=== PATIENT | female | born 1950 | race Two or more races ===

== ENCOUNTER 2017-08-23 20:22 | Inpatient (IN) | payer MEDICARE ==
[~2017-08-23] VITALS: Ht 170.2 cm; Wt 65.2 kg
[2017-08-23] MEDS ORDERED: ONDANSETRON 2MG/ML, 2ML IVPush ONE (21:00)
[2017-08-23] MEDS ORDERED: IBUPROFEN 200 MG TABLET PO ONE (21:00)
[2017-08-23] MEDS ORDERED: HYDROmorphone 1 MG/ML, 1ML IVPush PRN (21:00)
[2017-08-23] MEDS ORDERED: SODIUM CHLORIDE FLUSH 10ML SYR IVF ONE (21:00)
[2017-08-23] MEDS ORDERED: MORPHINE SULFATE 4 MG/ML, 1ML IVPush PRN (21:30)
[2017-08-23] MEDS ORDERED: PLEASE ENTER ALLERGIES MC SCH (21:30)
[2017-08-23] MEDS: PLEASE ENTER ALLERGIES MC SCH ×3 (21:36→23:36)
[2017-08-23 22:14] LABS: MEAN CORPUSCULAR HEMOGLOBIN 37.8 pg (27.0-34.8); MEAN CORPUSCULAR HGB CONC 34.2 g/dL (32.4-35.8); MEAN CORPUSCULAR VOLUME 110.6 fL (80-100); MEAN PLATELET VOLUME 8.3 fL (7.4-10.4); PLATELET COUNT 199 x10^3/uL (130-400); RED BLOOD COUNT 3.27 x10^6/uL (3.82-5.3); RED CELL DISTRIBUTION WIDTH 13.8 % (9.6-15.2)
[2017-08-23] MEDS ORDERED: MORPHINE SULFATE 4 MG/ML, 1ML ONE ×2 (22:22→22:58)
[2017-08-23 22:23] LABS: INTERNATIONAL NORMALIZED RATIO 1.05 (0.93-1.1); PROTHROMBIN TIME 10.8 Seconds (9.6-11.5)
[2017-08-23 22:25] LABS: ALBUMIN 3.1 g/dL (3.4-5.0); ANION GAP 13 mmol/L (5-15); CALCIUM 8.2 mg/dL (8.5-10.1); CHLORIDE 103 mmol/L (98-107); CREATININE 0.61 mg/dL (0.55-1.02)
[2017-08-23 22:37] LABS: BASOPHILS # (AUTO) 0.03 x10^3/uL (0-0.1); BASOPHILS % (AUTO) 0 % (0-1); EOSINOPHILS % (AUTO) 0 % (1-7); LYMPHOCYTES # (AUTO) 0.73 x10^3/uL (1-3.4); LYMPHOCYTES % (AUTO) 9 % (22-44); MD MORPH REVIEW ONLY; MONOCYTES # (AUTO) 0.31 x10^3/uL (0.2-0.8); MONOCYTES % (AUTO) 4 % (2-9); NEUTROPHILS # (AUTO) 7.41 x10^3/uL (1.8-6.8); NEUTROPHILS % (AUTO) 87 % (42-75)
[2017-08-23 22:38] LABS: <PLATELET ESTIMATE> ADEQUATE
[2017-08-23 22:39] LABS: LARGE PLATELETS 1+
[2017-08-23] MEDS: SODIUM CHLORIDE 0.9% 1,000 ML IV SCH (23:33)
[2017-08-24] MEDS ORDERED: THIAMINE 100 MG, MVI ADULT 10 ML, FOLIC ACID 1 MG in D5%-0.9% NACL 1,000 ML IV SCH
[2017-08-24] MEDS ORDERED: HEPARIN 5,000 UNITS/ML, 1ML SQ ONE
[2017-08-24] MEDS ORDERED: POLYETHYLENE GLYCOL 17 GM PACKET PO PRN
[2017-08-24] MEDS: PLEASE ENTER ALLERGIES MC SCH ×2 (00:36→01:36)
[2017-08-24 00:45] VITALS: BP 118/77
[2017-08-24] MEDS: morphine SULFATE 10 MG/ML, 1ML IVPush PRN ×4 (01:51→16:31)
[2017-08-24 09:11] VITALS: BP 104/69
[2017-08-24] MEDS ORDERED: LORazepam 2 MG/ML, 1ML IV PRN ×5 (09:30)
[2017-08-24] MEDS: SODIUM CHLORIDE 0.9% 1,000 ML IV SCH (09:33)
[2017-08-24 15:44] VITALS: BP 117/72
[2017-08-24] MEDS ORDERED: MORPHINE SULFATE 4 MG/ML, 1ML ONE (16:28)
[2017-08-24] MEDS ORDERED: MIDAZOLAM 1 MG/ML, 2ML ONE (18:37)
[2017-08-24] MEDS ORDERED: FENTANYL PF 250 MCG/5ML ONE (18:37)
[2017-08-24] MEDS ORDERED: CEFAZOLIN 1,000 MG ONE ×2 (18:38)
[2017-08-24] MEDS ORDERED: PHENYLEPHRINE 10 MG/ML ONE (18:39)
[2017-08-24 18:40] VITALS: BP 131/78
[2017-08-24] MEDS ORDERED: LIDOCAINE-MPF 2% ,5ML ONE (18:40)
[2017-08-24] MEDS ORDERED: PROPOFOL 10 MG/ML, 20ML ONE (18:40)
[2017-08-24] MEDS ORDERED: DEXAMETHASONE 4 MG/ML, 1ML ONE ×2 (18:40)
[2017-08-24] MEDS ORDERED: SUCCINYLCHOLINE 20 MG/ML, 10ML ONE (19:19)
[2017-08-24] MEDS: FENTANYL PF 100 MCG/2ML IV PRN ×3 (20:50→21:13)
[2017-08-24] MEDS ORDERED: FENTANYL PF 100 MCG/2ML ONE (20:52)
[2017-08-24] MEDS ORDERED: ACETAMINOPHEN 650 MG/20.3 ML UDC ONE (20:52)
[2017-08-24] MEDS ORDERED: OXYcodone 5 MG/5 ML ORAL.SOL UDC ONE (20:52)
[2017-08-24] MEDS ORDERED: morphine SULFATE 10 MG/ML, 1ML IV PRN (21:00)
[2017-08-24] MEDS ORDERED: PROMETHAZINE 25 MG/ML, 1ML IV PRN (21:00)
[2017-08-24] MEDS ORDERED: ACETAMINOPHEN 325 MG TABLET PO PRN (21:00)
[2017-08-24] MEDS ORDERED: OXYcodone 5 MG/5 ML ORAL.SOL UDC PO PRN (21:00)
[2017-08-24] MEDS ORDERED: ONDANSETRON 2MG/ML, 2ML IVPush PRN ×2 (21:00)
[2017-08-24] MEDS ORDERED: HYDROcodone/APAP 7.5-325MG/15ML UDC PO PRN (21:00)
[2017-08-24] MEDS ORDERED: MEPERIDINE/PF 25MG/0.5ML IVPush PRN (21:00)
[2017-08-24] MEDS ORDERED: ONDANSETRON ODT 4 MG PO PRN (21:30)
[2017-08-25] VITALS: BP 108/75
[2017-08-25] MEDS: SODIUM CHLORIDE 0.9% 1,000 ML IV SCH (00:45)
[2017-08-25] MEDS: CEFAZOLIN PMX 1GM/50ML 50 ML IVPB SCH ×2 (03:33→11:04)
[2017-08-25] MEDS: ACETAMINOPHEN 325 MG TABLET PO PRN (03:37)
[2017-08-25 04:03] VITALS: BP 137/87
[2017-08-25] MEDS ORDERED: RANITIDINE 50 MG in DEXTROSE 5% 100 ML IV ONE (05:30)
[2017-08-25] MEDS: ENOXAPARIN 40 MG/0.4 ML SQ SCH (05:58)
[2017-08-25 06:40] VITALS: BP 141/86
[2017-08-25] MEDS ORDERED: MAALOX/HYOSCYAMINE/LIDOCAINE 45 ML BTL PO ONE (09:00)
[2017-08-25] MEDS ORDERED: PROMETHAZINE 25 MG/ML, 1ML IM ONE (09:00)
[2017-08-25] MEDS ORDERED: ONDANSETRON 2MG/ML, 2ML IVPush PRN (09:00)
[2017-08-25 09:40] LABS: MEAN CORPUSCULAR HEMOGLOBIN 37.7 pg (27.0-34.8); MEAN CORPUSCULAR VOLUME 110.8 fL (80-100); MEAN PLATELET VOLUME 8.7 fL (7.4-10.4); PLATELET COUNT 174 x10^3/uL (130-400); RED BLOOD COUNT 2.79 x10^6/uL (3.82-5.3); RED CELL DISTRIBUTION WIDTH 13.2 % (9.6-15.2)
[2017-08-25 09:45] LABS: ALANINE AMINOTRANSFERASE 82 U/L (12-78); ALBUMIN 2.6 g/dL (3.4-5.0); ANION GAP 9 mmol/L (5-15); CALCIUM 8.1 mg/dL (8.5-10.1); CHLORIDE 104 mmol/L (98-107); CREATININE 0.58 mg/dL (0.55-1.02)
[2017-08-25 09:47] LABS: ALKALINE PHOSPHATASE 237 U/L (45-117); BILIRUBIN,TOTAL 1.2 mg/dL (0.2-1.0); TOTAL PROTEIN 5.6 g/dL (6.4-8.2)
[2017-08-25 10:10] LABS: BASOPHILS # (AUTO) 0.02 x10^3/uL (0-0.1); BASOPHILS % (AUTO) 0 % (0-1); EOSINOPHILS % (AUTO) 0 % (1-7); LYMPHOCYTES # (AUTO) 0.26 x10^3/uL (1-3.4); LYMPHOCYTES % (AUTO) 4 % (22-44); MD SCAN; MONOCYTES # (AUTO) 0.46 x10^3/uL (0.2-0.8); MONOCYTES % (AUTO) 7 % (2-9); NEUTROPHILS # (AUTO) 5.77 x10^3/uL (1.8-6.8); NEUTROPHILS % (AUTO) 89 % (42-75)
[2017-08-25] MEDS ORDERED: CEFAZOLIN PMX 1GM/50ML 50 ML ONE (10:55)
[2017-08-25] MEDS ORDERED: MAGNESIUM SULFATE PMX 4GM/100M 100 ML IV ONE (11:00)
[2017-08-25] MEDS: D5%-LACTATED RINGERS 1,000 ML IV SCH ×2 (11:07→23:15)
[2017-08-25] MEDS ORDERED: RANITIDINE 50 MG in SODIUM CHLORIDE 0.9% 100 ML IV SCH (13:30)
[2017-08-25] MEDS ORDERED: MORPHINE SULFATE 4 MG/ML, 1ML ONE ×2 (15:08→23:36)
[2017-08-25 15:10] VITALS: BP 135/86
[2017-08-25] MEDS: morphine SULFATE 10 MG/ML, 1ML IVPush PRN ×2 (15:12→23:40)
[2017-08-25 18:22] VITALS: BP 115/76
[2017-08-26 00:30] VITALS: BP 100/66
[2017-08-26 05:16] LABS: ALBUMIN 2.2 g/dL (3.4-5.0); ANION GAP 7 mmol/L (5-15); CALCIUM 7.5 mg/dL (8.5-10.1); CHLORIDE 105 mmol/L (98-107)
[2017-08-26 05:24] LABS: ALANINE AMINOTRANSFERASE 55 U/L (12-78); ALKALINE PHOSPHATASE 191 U/L (45-117); BILIRUBIN,TOTAL 1.1 mg/dL (0.2-1.0); CREATININE 0.49 mg/dL (0.55-1.02); TOTAL PROTEIN 4.6 g/dL (6.4-8.2)
[2017-08-26] MEDS ORDERED: RANITIDINE 50 MG in DEXTROSE 5% 100 ML IV ONE (05:30)
[2017-08-26] MEDS: D5%-LACTATED RINGERS 1,000 ML IV SCH ×3 (06:17→22:39)
[2017-08-26] MEDS: ENOXAPARIN 40 MG/0.4 ML SQ SCH (06:18)
[2017-08-26 06:58] VITALS: BP 102/67
[2017-08-26] MEDS ORDERED: MORPHINE SULFATE 4 MG/ML, 1ML ONE ×4 (08:36→21:49)
[2017-08-26] MEDS: morphine SULFATE 10 MG/ML, 1ML IVPush PRN ×4 (08:38→21:58)
[2017-08-26 13:02] VITALS: BP 96/64
[2017-08-26] MEDS ORDERED: DIAZEPAM 5 MG/ML, 2ML IV PRN (13:30)
[2017-08-26] MEDS: RANITIDINE 50 MG in SODIUM CHLORIDE 0.9% 100 ML IV SCH ×2 (14:13→22:39)
[2017-08-26 18:23] VITALS: BP 103/61
[2017-08-26] MEDS: TAMSULOSIN 0.4 MG CAP.ER.24H PO SCH (21:58)
[2017-08-27 00:37] VITALS: BP 95/60
[2017-08-27] MEDS ORDERED: MORPHINE SULFATE 4 MG/ML, 1ML ONE ×3 (03:24→18:37)
[2017-08-27] MEDS: morphine SULFATE 10 MG/ML, 1ML IVPush PRN ×3 (03:26→18:41)
[2017-08-27 05:14] LABS: MEAN CORPUSCULAR HGB CONC 34.4 g/dL (32.4-35.8); MEAN CORPUSCULAR VOLUME 110.5 fL (80-100); PLATELET COUNT 156 x10^3/uL (130-400); RED BLOOD COUNT 2.32 x10^6/uL (3.82-5.3); RED CELL DISTRIBUTION WIDTH 13.3 % (9.6-15.2)
[2017-08-27 05:17] LABS: CHLORIDE 106 mmol/L (98-107)
[2017-08-27 05:35] LABS: ALANINE AMINOTRANSFERASE 39 U/L (12-78); ALBUMIN 1.8 g/dL (3.4-5.0); ALKALINE PHOSPHATASE 169 U/L (45-117); ANION GAP 7 mmol/L (5-15); BILIRUBIN,TOTAL 1.2 mg/dL (0.2-1.0); CALCIUM 7.3 mg/dL (8.5-10.1); CREATININE 0.35 mg/dL (0.55-1.02); TOTAL PROTEIN 4.1 g/dL (6.4-8.2)
[2017-08-27] MEDS: D5%-LACTATED RINGERS 1,000 ML IV SCH ×3 (06:06→18:33)
[2017-08-27] MEDS: RANITIDINE 50 MG in SODIUM CHLORIDE 0.9% 100 ML IV SCH ×3 (06:06→22:55)
[2017-08-27 06:09] LABS: BASOPHILS # (AUTO) 0.01 x10^3/uL (0-0.1); BASOPHILS % (AUTO) 0 % (0-1); EOSINOPHILS # (AUTO) 0.01 x10^3/uL (0-0.4); EOSINOPHILS % (AUTO) 0 % (1-7); LYMPHOCYTES % (AUTO) 9 % (22-44); MD SCAN; MONOCYTES # (AUTO) 0.49 x10^3/uL (0.2-0.8); MONOCYTES % (AUTO) 6 % (2-9); NEUTROPHILS # (AUTO) 7.25 x10^3/uL (1.8-6.8); NEUTROPHILS % (AUTO) 85 % (42-75)
[2017-08-27] MEDS: ENOXAPARIN 40 MG/0.4 ML SQ SCH (06:24)
[2017-08-27 06:56] VITALS: BP 94/51
[2017-08-27 14:52] VITALS: BP 116/74
[2017-08-27] MEDS: TAMSULOSIN 0.4 MG CAP.ER.24H PO SCH (16:28)
[2017-08-27 19:28] VITALS: BP 112/65
[2017-08-27 23:36] LABS: CULTURE INDICATED? YES; MICROSCOPIC INDICATED
[2017-08-28] MEDS: D5%-LACTATED RINGERS 1,000 ML IV SCH ×2 (00:12→05:35)
[2017-08-28] MEDS: ACETAMINOPHEN 325 MG TABLET PO PRN (00:14)
[2017-08-28 01:12] VITALS: BP 107/61
[2017-08-28 04:54] LABS: MEAN CORPUSCULAR HEMOGLOBIN 38.3 pg (27.0-34.8); MEAN CORPUSCULAR HGB CONC 34.5 g/dL (32.4-35.8); MEAN CORPUSCULAR VOLUME 110.9 fL (80-100); MEAN PLATELET VOLUME 8.5 fL (7.4-10.4); PLATELET COUNT 177 x10^3/uL (130-400); RED CELL DISTRIBUTION WIDTH 13.4 % (9.6-15.2)
[2017-08-28 05:04] LABS: CHLORIDE 107 mmol/L (98-107)
[2017-08-28 05:12] LABS: ALANINE AMINOTRANSFERASE 52 U/L (12-78); ALBUMIN 1.6 g/dL (3.4-5.0); ALKALINE PHOSPHATASE 302 U/L (45-117); ANION GAP 7 mmol/L (5-15); BILIRUBIN,TOTAL 1.1 mg/dL (0.2-1.0); CALCIUM 7.4 mg/dL (8.5-10.1); CREATININE 0.34 mg/dL (0.55-1.02); TOTAL PROTEIN 4.1 g/dL (6.4-8.2)
[2017-08-28] MEDS: RANITIDINE 50 MG in SODIUM CHLORIDE 0.9% 100 ML IV SCH ×3 (05:35→21:31)
[2017-08-28] MEDS: ENOXAPARIN 40 MG/0.4 ML SQ SCH (05:35)
[2017-08-28 05:44] LABS: BASOPHILS # (AUTO) 0.02 x10^3/uL (0-0.1); BASOPHILS % (AUTO) 0 % (0-1); EOSINOPHILS # (AUTO) 0.03 x10^3/uL (0-0.4); EOSINOPHILS % (AUTO) 0 % (1-7); LYMPHOCYTES # (AUTO) 1.18 x10^3/uL (1-3.4); LYMPHOCYTES % (AUTO) 15 % (22-44); MD SCAN; MONOCYTES # (AUTO) 0.59 x10^3/uL (0.2-0.8); MONOCYTES % (AUTO) 7 % (2-9); NEUTROPHILS # (AUTO) 6.25 x10^3/uL (1.8-6.8); NEUTROPHILS % (AUTO) 77 % (42-75)
[2017-08-28] MEDS ORDERED: PNEUMOCOCCAL 23 VACCINE IM-VACC ONE (06:30)
[2017-08-28 06:45] VITALS: BP 116/67
[2017-08-28] MEDS ORDERED: SIMETHICONE 80 MG CHEW TAB PO PRN (09:30)
[2017-08-28] MEDS ORDERED: MORPHINE SULFATE 4 MG/ML, 1ML ONE (09:46)
[2017-08-28] MEDS: DOCUSATE 100 MG CAPSULE PO SCH (09:48)
[2017-08-28] MEDS: morphine SULFATE 10 MG/ML, 1ML IVPush PRN ×2 (09:48→18:01)
[2017-08-28 12:10] VITALS: BP 122/73
[2017-08-28] MEDS: POTASSIUM CHLORIDE 40 MEQ in LACTATED RINGERS 1,000 ML IV SCH ×2 (13:38→23:33)
[2017-08-28 19:02] VITALS: BP 119/70
[2017-08-28] MEDS: SENNA/DOCUSATE TABLET PO SCH (21:31)
[2017-08-28] MEDS: TAMSULOSIN 0.4 MG CAP.ER.24H PO SCH (21:31)
[2017-08-29 01:29] VITALS: BP 99/61
[2017-08-29 05:03] LABS: MEAN CORPUSCULAR HEMOGLOBIN 37.7 pg (27.0-34.8); MEAN CORPUSCULAR HGB CONC 34.2 g/dL (32.4-35.8); MEAN PLATELET VOLUME 8.3 fL (7.4-10.4); PLATELET COUNT 264 x10^3/uL (130-400); RED BLOOD COUNT 2.24 x10^6/uL (3.82-5.3); RED CELL DISTRIBUTION WIDTH 13.4 % (9.6-15.2)
[2017-08-29 05:12] LABS: CHLORIDE 106 mmol/L (98-107)
[2017-08-29 05:18] LABS: ALANINE AMINOTRANSFERASE 109 U/L (12-78); ALBUMIN 1.6 g/dL (3.4-5.0); ALKALINE PHOSPHATASE 352 U/L (45-117); ANION GAP 5 mmol/L (5-15); BILIRUBIN,TOTAL 1.7 mg/dL (0.2-1.0); CALCIUM 7.6 mg/dL (8.5-10.1); CREATININE 0.35 mg/dL (0.55-1.02); TOTAL PROTEIN 4.3 g/dL (6.4-8.2)
[2017-08-29 05:43] LABS: BASOPHILS # (AUTO) 0.01 x10^3/uL (0-0.1); BASOPHILS % (AUTO) 0 % (0-1); EOSINOPHILS # (AUTO) 0.03 x10^3/uL (0-0.4); EOSINOPHILS % (AUTO) 0 % (1-7); LYMPHOCYTES # (AUTO) 0.99 x10^3/uL (1-3.4); LYMPHOCYTES % (AUTO) 13 % (22-44); MD SCAN; MONOCYTES # (AUTO) 0.84 x10^3/uL (0.2-0.8); MONOCYTES % (AUTO) 11 % (2-9); NEUTROPHILS # (AUTO) 5.91 x10^3/uL (1.8-6.8); NEUTROPHILS % (AUTO) 76 % (42-75)
[2017-08-29] MEDS: ENOXAPARIN 40 MG/0.4 ML SQ SCH (06:18)
[2017-08-29] MEDS: RANITIDINE 50 MG in SODIUM CHLORIDE 0.9% 100 ML IV SCH ×3 (06:18→22:52)
[2017-08-29 07:15] VITALS: BP 115/75
[2017-08-29] MEDS ORDERED: DOCUSATE 50 MG/5 ML, 10ML UDC NG SCH (09:00)
[2017-08-29] MEDS: DOCUSATE 100 MG CAPSULE PO SCH (10:08)
[2017-08-29] MEDS: POTASSIUM CHLORIDE 40 MEQ in LACTATED RINGERS 1,000 ML IV SCH ×2 (10:08→22:52)
[2017-08-29] MEDS ORDERED: MORPHINE SULFATE 4 MG/ML, 1ML ONE ×3 (11:53→20:57)
[2017-08-29] MEDS: morphine SULFATE 10 MG/ML, 1ML IVPush PRN ×3 (11:56→21:16)
[2017-08-29 12:21] VITALS: BP 122/75
[2017-08-29] MEDS ORDERED: CEFTRIAXONE PMX 2GM/50ML 50 ML IV SCH (13:30)
[2017-08-29 19:08] VITALS: BP 102/68
[2017-08-29] MEDS: SENNA/DOCUSATE TABLET PO SCH (20:44)
[2017-08-29] MEDS: TAMSULOSIN 0.4 MG CAP.ER.24H PO SCH (20:45)
[2017-08-30 00:50] VITALS: BP 109/62
[2017-08-30] MEDS: POTASSIUM CHLORIDE 40 MEQ in LACTATED RINGERS 1,000 ML IV SCH (05:00)
[2017-08-30 05:36] LABS: BASOPHILS % (AUTO) 0 % (0-1); EOSINOPHILS # (AUTO) 0.04 x10^3/uL (0-0.4); EOSINOPHILS % (AUTO) 1 % (1-7); LYMPHOCYTES # (AUTO) 1.09 x10^3/uL (1-3.4); LYMPHOCYTES % (AUTO) 15 % (22-44); MD NO; MEAN CORPUSCULAR HEMOGLOBIN 37.6 pg (27.0-34.8); MEAN CORPUSCULAR HGB CONC 34.3 g/dL (32.4-35.8); MEAN CORPUSCULAR VOLUME 109.5 fL (80-100); MEAN PLATELET VOLUME 7.8 fL (7.4-10.4); MONOCYTES % (AUTO) 11 % (2-9); NEUTROPHILS # (AUTO) 5.57 x10^3/uL (1.8-6.8); NEUTROPHILS % (AUTO) 74 % (42-75); PLATELET COUNT 350 x10^3/uL (130-400); RED BLOOD COUNT 2.42 x10^6/uL (3.82-5.3); RED CELL DISTRIBUTION WIDTH 13.6 % (9.6-15.2)
[2017-08-30 05:50] LABS: CHLORIDE 106 mmol/L (98-107)
[2017-08-30] MEDS: RANITIDINE 50 MG in SODIUM CHLORIDE 0.9% 100 ML IV SCH (05:56)
[2017-08-30] MEDS: ENOXAPARIN 40 MG/0.4 ML SQ SCH (05:56)
[2017-08-30 05:59] LABS: ALANINE AMINOTRANSFERASE 118 U/L (12-78); ALBUMIN 1.7 g/dL (3.4-5.0); ALKALINE PHOSPHATASE 390 U/L (45-117); ANION GAP 7 mmol/L (5-15); BILIRUBIN,TOTAL 1.9 mg/dL (0.2-1.0); CALCIUM 7.8 mg/dL (8.5-10.1); CREATININE 0.38 mg/dL (0.55-1.02); TOTAL PROTEIN 5.1 g/dL (6.4-8.2)
[2017-08-30] MEDS: DOCUSATE 100 MG CAPSULE PO SCH ×2 (08:36→08:37)
[2017-08-30] MEDS ORDERED: ENOX40SY4 SQ (08:44)
[2017-08-30] MEDS ORDERED: CEFT2FRO2 IV (08:44)
[2017-08-30] MEDS ORDERED: OXYC5TAB3 PO (08:46)
[2017-08-30] MEDS ORDERED: MAGNESIUM SULFATE PMX 2GM/50ML 50 ML IV ONE (09:00)
[2017-08-30 09:22] VITALS: BP 109/65
[2017-08-30 12:35] VITALS: BP 113/73
== END 2017-08-30 12:55 | DRG 480 ==
LOC: ED 23:10 → EDIP 23:26 → 4NOR 08-24 00:25
PROVIDERS: ADMIT Hospitalist; ATTEND Hospitalist
PROC: 0QS704Z Reposition Left Upper Femur with Internal Fixation Device, Open Approach (ICD-10-PCS; principal; 2017-08-24 14:30)
DX: S72.145A Nondisplaced intertrochanteric fracture of left femur, initial encounter for closed fracture (principal); K85.20 Alcohol induced acute pancreatitis without necrosis or infection; M87.9 Osteonecrosis, unspecified; E83.42 Hypomagnesemia; K70.10 Alcoholic hepatitis without ascites; N39.0 Urinary tract infection, site not specified; F10.229 Alcohol dependence with intoxication, unspecified; K80.20 Calculus of gallbladder without cholecystitis without obstruction; E87.6 Hypokalemia; F17.210 Nicotine dependence, cigarettes, uncomplicated; K59.00 Constipation, unspecified; K76.0 Fatty (change of) liver, not elsewhere classified; W18.30XA Fall on same level, unspecified, initial encounter; Z86.011 Personal history of benign neoplasm of the brain; Z96.649 Presence of unspecified artificial hip joint; B96.89 Other specified bacterial agents as the cause of diseases classified elsewhere; Y93.89 Activity, other specified; Y92.89 Other specified places as the place of occurrence of the external cause; Y99.8 Other external cause status
CPT/HCPCS: 36415; 70450; 71045; 72170; 74018; 74181; 76001; 76700; 80048; 80053; 80307; 81001; 82040; 82150; 83690; 83735; 84100; 85025; 85610; 85730; 87077; 87086; 87186; 90732; 93005; 96361; 96374; C1713; J0690; J0696; J1100; J1644; J1650; J2250; J2405; J2550; J2704; J2780; J3010; J3411; J3480; J3490; J7042; J0330; J2270; J2370; J3475; J7030; J7120; J7121

== ENCOUNTER 2018-12-19 07:31 | Outpatient (CLI) | payer MEDICARE ==
[~2018-12-19 07:31] MED LIST: CEFD300C37 PO; CEFT2FRO2 IV; ENOX40SY4 SQ; KETO10TA PO; LACT1TAB13 PO; OXYC5TAB3 PO
[2019-03-04] MEDS ORDERED: SULF-169 PO (10:42)
== END 2018-12-19 23:59 | disposition home or self-care (01) ==
LOC: CVU 07:31
PROVIDERS: ATTEND Physician Assistant
DX: I77.1 Stricture of artery (principal); I73.9 Peripheral vascular disease, unspecified; F17.200 Nicotine dependence, unspecified, uncomplicated
CPT/HCPCS: 93922; 93925

== ENCOUNTER 2019-03-30 12:37 | Emergency (ER) | payer MEDICARE ==
[~2019-03-30] VITALS: Ht 162.6 cm; Wt 58.0 kg
[~2019-03-30 12:37] MED LIST changes: +SULF-169 PO
--- NOTE | 2019-03-30 12:43 | NUR ---
CURRICULUM AND ASSESSMENT COORDINATOR: PT TO ROOM FROM GINO, KARIE W/C. GAIT STEADY.
[2019-03-30 13:14] LABS: BASOPHILS # (AUTO) 0.03 x10^3/uL (0-0.1); BASOPHILS % (AUTO) 0 % (0-1); EOSINOPHILS # (AUTO) 0.08 x10^3/uL (0-0.4); EOSINOPHILS % (AUTO) 1 % (1-7); LYMPHOCYTES # (AUTO) 1.87 x10^3/uL (1-3.4); LYMPHOCYTES % (AUTO) 26 % (22-44); MD NO; MEAN CORPUSCULAR HEMOGLOBIN 34.6 pg (27.0-34.8); MEAN CORPUSCULAR HGB CONC 33.8 g/dL (32.4-35.8); MEAN CORPUSCULAR VOLUME 102.3 fL (80-100); MEAN PLATELET VOLUME 7.4 fL (7.4-10.4); MONOCYTES # (AUTO) 0.34 x10^3/uL (0.2-0.8); MONOCYTES % (AUTO) 5 % (2-9); NEUTROPHILS # (AUTO) 5.04 x10^3/uL (1.8-6.8); NEUTROPHILS % (AUTO) 69 % (42-75); PLATELET COUNT 291 x10^3/uL (130-400); RED BLOOD COUNT 3.95 x10^6/uL (3.82-5.3); RED CELL DISTRIBUTION WIDTH 13.3 % (9.6-15.2)
[2019-03-30 13:25] LABS: ALANINE AMINOTRANSFERASE 94 U/L (12-78); ALBUMIN 3.8 g/dL (3.4-5.0); ANION GAP 5 mmol/L (5-15); CALCIUM 9.1 mg/dL (8.5-10.1); CHLORIDE 108 mmol/L (98-107); CREATININE 0.74 mg/dL (0.55-1.02)
[2019-03-30 13:29] LABS: ALKALINE PHOSPHATASE 202 U/L (45-117); BILIRUBIN,TOTAL 0.9 mg/dL (0.2-1.0); TOTAL PROTEIN 7.8 g/dL (6.4-8.2); TROPONIN I < 0.015 ng/mL (0.000-0.045)
[2019-03-30] MEDS ORDERED: MORPHINE SULFATE 4 MG/ML, 1ML ONE (13:46)
--- NOTE | 2019-03-30 13:48 | NUR ---
PT C/O INCREASED RT UPPER CHEST PAIN. PROVIDER CONSULTED; MORPHINE ORDERED.
[2019-03-30] MEDS ORDERED: MORPHINE SULFATE 4 MG/ML, 1ML IVPush PRN (14:00)
[2019-03-30] MEDS ORDERED: SODIUM CHLORIDE FLUSH 10ML SYR IVF ONE (14:00)
--- NOTE | 2019-03-30 14:00 | NUR ---
REPORTS IMPROVEMENT IN PAIN
--- NOTE | 2019-03-30 14:54 | NUR ---
Levi from radiology called. He could not use the IV the patient had for the exam. He stated that he gave the patient an 18 gauge IV.
[2019-03-30] MEDS ORDERED: OMNIPAQUE 350 MG/ML, 100ML BOTTLE ONE (15:00)
--- NOTE | 2019-03-30 15:14 | NUR ---
PER ELECTRICAL MANAGER, NEW IV INITIATED IN CT
--- NOTE | 2019-03-30 15:15 | NUR ---
DR VINCENT BS
--- NOTE | 2019-03-30 15:40 | NUR ---
LYING QUIETLY ON GURNEY, AWAITING DC.
[2019-03-30 15:42] VITALS: BP 104/68
== END 2019-03-30 15:58 | disposition home or self-care (01) ==
LOC: ED 13:19
DX: R07.89 Other chest pain (principal); K70.10 Alcoholic hepatitis without ascites; F17.200 Nicotine dependence, unspecified, uncomplicated
CPT/HCPCS: 36415; 71045; 71275; 80053; 84484; 85025; 85379; 93005; 96374; 99284; J2270; Q9967